=== PATIENT | male | born 1965 | race Hispanic/Latino ===

== ENCOUNTER 2019-10-22 16:03 | Emergency (ER) | payer OTHER | END 2019-10-22 17:24 | disposition home or self-care (01) | LOC: EDH 16:03 | DX: Z48.03 Encounter for change or removal of drains (principal); E11.9 Type 2 diabetes mellitus without complications; I10 Essential (primary) hypertension; M19.90 Unspecified osteoarthritis, unspecified site | CPT/HCPCS: 99281 ==